=== PATIENT | male | born 1970 | race Caucasian/White ===

== ENCOUNTER 2018-03-28 06:59 | Inpatient (IN) | payer SELFPAY ==
[2018-03-28] MEDS ORDERED: Sodium Chloride 0.9% 1,000 ML IV ONE (07:15)
--- NOTE | 2018-03-28 07:15 | EDM.PDOC ---
ED HPI GENERAL MEDICAL PROBLEM - General Chief Complaint: Skin Complaint Stated Complaint: INFECTION ON LEFT ARM Time Seen by Provider: 03/28/18 07:12 - History of Present Illness INITIAL COMMENTS - FREE TEXT/NARRATIVE: HISTORY AND PHYSICAL: History of present illness: Since 47-year-old white male presents with concern pain redness and swelling to his left upper extremity he describes was a similar episode in the past in which it sounds like he had surgical intervention may have had necrotizing fasciitis he does not recognize at term but states it was quite severe. He has significant pain he denies fever he states this started with a fall he denies any break in the skin or any laceration. Review of systems: As per history of present illness and below otherwise all systems reviewed and negative. Past medical history: As per history of present illness and as reviewed below otherwise noncontributory. Surgical history: As per history of present illness and as reviewed below otherwise noncontributory. Social history: No reported history of drug or alcohol abuse. Family history: As per history of present illness and as reviewed below otherwise noncontributory. Physical exam: HEENT: Atraumatic, normocephalic, pupils reactive, negative for conjunctival pallor or scleral icterus, mucous membranes moist, throat clear, neck supple, nontender, trachea midline. Lungs: Clear to auscultation, breath sounds equal bilaterally, chest nontender. Heart: S1S2, regular, negative for clicks, rubs, or JVD. Abdomen: Soft, nondistended, nontender. Negative for masses or hepatosplenomegaly. Negative for costovertebral tenderness. Pelvis: Stable nontender. Genitourinary: Deferred. Rectal: Deferred. Extremities: Left upper extremity he has erythema warmth induration extending from his dorsal lateral aspect of his forearm proximally to his humerus. Neurovascular exam is unremarkable there's no fluctuance. Neuro: Awake, alert, oriented. Cranial nerves II through XII unremarkable. Cerebellum unremarkable. Motor and sensory unremarkable throughout. Exam nonfocal. Diagnostics: CBC CMP blood culture [address] left upper extremity Therapeutics: Normal saline 1 L bolus vancomycin 1 g IV Impression: 1 cellulitis left upper extremity Definitive disposition and diagnosis as appropriate pending reevaluation and review of above. - Related Data Allergies Allergy/AdvReac Type Severity Reaction Status Date / Time diclofenac [From [place]aid] Allergy Hives Verified 03/28/18 07:21 Home Meds: Home Meds Acetaminophen [Pain Reliever] 03/28/18 [History] Ibuprofen [Advil] 03/28/18 [History] ED ROS GENERAL - Review of Systems Review Of Systems: ROS reveals no pertinent complaints other than HPI. ED EXAM, SKIN/RASH Exam: See Below (See dictation) Course - Vital Signs Last Recorded V/S: Last Vital Signs Temp 36.8 C 03/28/18 07:12 Pulse 99 03/28/18 07:12 Resp 18 03/28/18 07:12 BP 132/80 03/28/18 07:12 Pulse Ox 99 03/28/18 07:12 - Orders/Labs/Meds Orders: Active Orders 24 hr Category Date Time Status Forearm 2V Lt [CR] Stat Exams 03/28/18 07:38 Taken Forearm w Cont Lt [CT] Stat Exams 03/28/18 07:24 Ordered Humerus Lt [CR] Stat Exams 03/28/18 07:16 Taken Humerus w Cont Lt [CT] Stat Exams 03/28/18 07:24 Ordered CULTURE BLOOD [BC] Stat Lab 03/28/18 07:14 Ordered CULTURE BLOOD [BC] Stat Lab 03/28/18 07:14 Ordered LACTIC ACID,WHOLE BLOOD [BG] Stat Lab 03/28/18 07:12 Ordered Blood Culture x2 Reflex Set [OM.PC] Stat Oth 03/28/18 07:12 Ordered Labs: Laboratory Tests 03/28/18 03/28/18 Range/Units 08:00 08:00 WBC 16.06 H (4.0-11.0) K/uL RBC 4.75 (4.50-5.90) M/uL Hgb 15.3 (13.0-17.0) g/dL Hct 44.7 (38.0-50.0) % MCV 94.1 (80.0-98.0) fL MCH 32.2 H (27.0-32.0) pg MCHC 34.2 (31.0-37.0) g/dL RDW Std Deviation 43.8 (28.0-62.0) fl RDW Coeff of Giovani 13 (11.0-15.0) % Plt Count 163 (150-400) K/uL MPV 9.80 (7.40-12.00) fL Neut % (Auto) 79.1 (48.0-80.0) % Lymph % (Auto) 6.4 L (16.0-40.0) % [place] % (Auto) 14.3 (0.0-15.0) % Eos % (Auto) 0.1 (0.0-7.0) % Baso % (Auto) 0.1 (0.0-1.5) % Neut # (Auto) 12.7 H (1.4-5.7) K/uL Lymph # (Auto) 1.0 (0.6-2.4) K/uL [place] # (Auto) 2.3 H (0.0-0.8) K/uL Eos # (Auto) 0.0 (0.0-0.7) K/uL Baso # (Auto) 0.0 (0.0-0.1) K/uL Nucleated RBC % 0.0 /100WBC Nucleated RBCs # 0 K/uL Sodium 138 (136-148) mmol/L Potassium 4.0 (3.5-5.1) mmol/L Chloride 101 (98-107) mmol/L Carbon Dioxide 24.0 (21.0-32.0) mmol/L BUN 14 (7.0-18.0) mg/dL Creatinine 1.0 (0.8-1.3) mg/dL Est Cr Clr Drug Dosing TNP Estimated GFR (MDRD) > 60.0 ml/min Glucose 101 (74-106) mg/dL Calcium 9.1 (8.5-10.1) mg/dL Total Bilirubin 1.2 H (0.2-1.0) mg/dL AST 27 (15-37) IU/L ALT 33 (14-63) IU/L Alkaline Phosphatase 81 (46-116) U/L Total Protein 7.7 (6.4-8.2) g/dL Albumin 3.7 (3.4-5.0) g/dL Globulin 4.0 H (2.0-3.5) g/dL Albumin/Globulin Ratio 0.9 L (1.3-2.8) Meds: Medications Discontinued Medications Generic Name Dose Route Start Last Admin Trade Name Freq PRN Reason Stop Dose Admin Hydromorphone HCl 1 mg 03/28/18 07:27 03/28/18 08:00 Dilaudid IVPUSH 03/28/18 07:28 1 mg ONETIME ONE Administration Sodium Chloride 1,000 mls @ 999 mls/hr 03/28/18 07:15 03/28/18 08:15 Normal Saline IV 03/28/18 08:15 500 mls/hr .Bolus ONE Administration Vancomycin HCl 1 gm/ Sodium 250 mls @ 166 mls/hr 03/28/18 07:15 03/28/18 08: 15 Chloride IV 03/28/18 08:45 166 mls/hr ONETIME ONE Administration Ceftriaxone Sodium/Dextrose 2 50 mls @ 100 mls/hr 03/28/18 07:18 03/28/18 08: 36 gm/ Premix IV 03/28/18 07:47 100 mls/hr ONETIME ONE Administration Ondansetron HCl 4 mg 03/28/18 07:27 03/28/18 08:14 Zofran IVPUSH 03/28/18 07:28 4 mg ONETIME ONE Administration Departure - Departure Time of Disposition: 09:03 Disposition: Admitted As Inpatient 66 Condition: Good Clinical Impression: Cellulitis - Discharge Information Forms: ED Department Discharge - My Orders Last 24 Hours: My Active Orders 03/28/18 07:12 LACTIC ACID,WHOLE BLOOD [BG] Stat Blood Culture x2 Reflex Set [OM.PC] Stat 03/28/18 07:14 CULTURE BLOOD [BC] Stat CULTURE BLOOD [BC] Stat 03/28/18 07:16 Humerus Lt [CR] Stat 03/28/18 07:24 Forearm w Cont Lt [CT] Stat Humerus w Cont Lt [CT] Stat 03/28/18 07:38 Forearm 2V Lt [CR] Stat - Assessment/Plan Last 24 Hours: My Active Orders 03/28/18 07:12 LACTIC ACID,WHOLE BLOOD [BG] Stat Blood Culture x2 Reflex Set [OM.PC] Stat 03/28/18 07:14 CULTURE BLOOD [BC] Stat CULTURE BLOOD [BC] Stat 03/28/18 07:16 Humerus Lt [CR] Stat 03/28/18 07:24 Forearm w Cont Lt [CT] Stat Humerus w Cont Lt [CT] Stat 03/28/18 07:38 Forearm 2V Lt [CR] Stat
[2018-03-28] MEDS ORDERED: cefTRIAXone 2 GM in Premix Bag 1 BAG IV ONE (07:18)
[2018-03-28] MEDS ORDERED: Ondansetron 4 MG/2 ML SDV IVPUSH ONE (07:27)
[2018-03-28] MEDS ORDERED: HYDROmorphone 1 MG/ML Syringe IVPUSH ONE ×2 (07:27→10:54)
[2018-03-28 08:59] LABS: CHLORIDE,CL 101 mmol/L (98-107); SODIUM,NA 138 mmol/L (136-148)
[2018-03-28] MEDS ORDERED: Iopamidol 755 MG/ML 500 ML Multipack Bottle IVPUSH STA (12:09)
--- NOTE | 2018-03-28 12:59 | CT ---
EXAMINATION: CT left humerus and forearm HISTORY: Swelling COMPARISON: Radiograph from the same day TECHNIQUE: Axial CT images obtained through the left arm following the administration of 100 mL of Is ovue-370 the patient's right PICC line. Coronal and sagittal reconstructions obtained. FINDINGS: There is extensive subcutaneous edema within the left arm most prominent overlying the olec ranon. There is however fluid and edema tracking along the radial and dorsal fascial plane of the for earm. This demonstrates mild enhancement along the fascial plane. No evidence of subcutaneous gas. No elbow joint effusion. Edema extends to the lower humeral region however the fascial enhancement term inates at the supracondylar region. There is screw and plate hardware fixating the distal radius. Mil d subcutaneous edema distally however no organized fluid collection is noted overlying the hardware. No fracture or acute osseous abnormality. Bone mineralization is otherwise normal. IMPRESSION: 1. Fluid and edema within the radial and dorsal forearm with fascial enhancement concerning for fasci itis. No organized collection to suggest an abscess. 2. Otherwise extensive edema within the adjacent soft tissues consistent with cellulitis.
[2018-03-28] MEDS ORDERED: HYDROmorphone 1 MG/ML Syringe IVPUSH PRN (13:05)
[2018-03-28] MEDS ORDERED: Ondansetron 4 MG/2 ML SDV IVPUSH PRN (13:07)
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
[2018-03-28] MEDS ORDERED: Clindamycin Phosphate in D5W 600 MG in Premix Bag 50 BAG IV SCH ×2 (13:15)
[2018-03-28] MEDS ORDERED: Sodium Chloride 0.9% 1,000 ML IV SCH (13:15)
--- NOTE | 2018-03-28 13:40 | PCM.CONS ---
<Joe Alcocer - Last Filed: 03/28/18 13:56> H&P History of Present Illness - General Admit Problem/Dx: Admission Diagnosis/Problem Admission Diagnosis/Problem Cellulitis - History of Present Illness Initial Comments - Free Text/Narative: Mr. Cespedes is a 47 yr old male who presented to the ER today for worsening left arm pain, redness, and warmth. About four days ago he hit his left forearm on an elevator door. He did not break the skin. Since then he has not felt well, endorsing fever, chills, sweats, and worsening arm pain. He has not eaten or drank much. Two days ago the area began to become red. The pain has significantly worsened leading him to come into the ER. The associated redness has began to extend up his arm, toward the shoulder. He has swelling from the elbow to the hand. He endorses some numbness in the forearm. He describes a similar prior event a few years ago in which his right arm was surgically derided and he was treated with IV vancomycin and clindamycin for a staph infection. He has had prior plating of his left wrist and still has the hardware in place. He reports he is otherwise healthy and does not take any medications. He denies any bleeding or blood clotting problems. Allergy to penicillin. No known cardiac or pulmonary problems Left Arm Pain Score (Numeric/FACES): 10 - Related Data Allergies/Adverse Reactions: Allergies Allergy/AdvReac Type Severity Reaction Status Date / Time Penicillins Allergy Severe Swelling Verified 03/28/18 13:55 Home Medications: Home Meds Acetaminophen [Pain Reliever] PRN 03/28/18 [History] Ibuprofen [Advil] PO PRN 03/28/18 [History] Past Medical History HEENT History: Reports: None Cardiovascular History: Reports: None Respiratory History: Reports: None Gastrointestinal History: Reports: None Genitourinary History: Reports: None Musculoskeletal History: Reports: Back Pain, Chronic Neurological History: Reports: None, Other (See Below) Other Neuro History: Leg nerve problem Psychiatric History: Reports: Anxiety Endocrine/Metabolic History: Reports: None Hematologic History: Reports: None Immunologic History: Reports: None Oncologic (Cancer) History: Reports: None Dermatologic History: Reports: Other (See Below) Other Dermatologic History: MRSA infection L arm - Infectious Disease History Infectious Disease History: Reports: MRSA - Past Surgical History Head Surgeries/Procedures: Reports: None Respiratory Surgical History: Reports: Other (See Below) Other Respiratory Surgeries/Procedures: nose fx x 5 Musculoskeletal Surgical History: Reports: Other (See Below) Other Musculoskeletal Surgeries/Procedures:: L5 fusion Social & Family History - Family History Family Medical History: Noncontributory - Tobacco Use Smoking Status *Q: Current Some Day Smoker Years of Tobacco use: 10 Packs/Tins Daily: 0.2 Used Tobacco, but Quit: No Second Hand Smoke Exposure: Yes - Caffeine Use Caffeine Use: Reports: Coffee - Alcohol Use Alcohol Use History: Yes Days Per Week of Alcohol Use: 7 Number of Drinks Per Day: 2 Total Drinks Per Week: 14 - Recreational Drug Use Recreational Drug Use: No Drug Use in Last 12 Months: Yes Recreational Drug Type: Reports: Marijuana/Hashish Recreational Drug Use Frequency: Not Used In Over 6 Months H&P Review of Systems - Review of Systems: Review Of Systems: See Below General: Reports: Fever, Chills, Malaise, Weakness, Diaphoresis, Decreased Appetite Pulmonary: Reports: No Symptoms Cardiovascular: Reports: No Symptoms Gastrointestinal: Reports: Nausea, Vomiting Musculoskeletal: Reports: Other (Left arm redness, swelling, warmth, and associated numbness. Pain with wrist and elbow movement. ) Exam - Exam Exam: See Below - Vital Signs Vital Signs: Last Vital Signs Temp 36.8 C 03/28/18 07:12 Pulse 90 03/28/18 09:00 Resp 18 03/28/18 09:00 BP 125/70 03/28/18 09:00 Pulse Ox 98 03/28/18 09:00 Weight: 108.862 kg - Exam General: Alert, Mild Distress Lungs: Clear to Auscultation, Normal Respiratory Effort Cardiovascular: Regular Rate GI/Abdominal Exam: Soft, Non-Tender Extremities: Other (Left upper extremity swelling from hand to elbow. Associated blanching erythema. The forearm compartment is tense. Limited range of motion at wrist and elbow that with movement aggravates pain. Significant tenderness to palpation along forearm. Distal sensation grossly intact. Does endorse some numbness over forearm. Radial pulse intact. ) - Patient Data Lab Results Last 24 hrs: Laboratory Results - last 24 hr 03/28/18 03/28/18 03/28/18 Range/Units 08:00 08:00 13:17 WBC 16.06 H (4.0-11.0) K/uL RBC 4.75 (4.50-5.90) M/uL Hgb 15.3 (13.0-17.0) g/dL Hct 44.7 (38.0-50.0) % MCV 94.1 (80.0-98.0) fL MCH 32.2 H (27.0-32.0) pg MCHC 34.2 (31.0-37.0) g/dL RDW Std Deviation 43.8 (28.0-62.0) fl RDW Coeff of Giovani 13 (11.0-15.0) % Plt Count 163 (150-400) K/uL MPV 9.80 (7.40-12.00) fL Neut % (Auto) 79.1 (48.0-80.0) % Lymph % (Auto) 6.4 L (16.0-40.0) % [place] % (Auto) 14.3 (0.0-15.0) % Eos % (Auto) 0.1 (0.0-7.0) % Baso % (Auto) 0.1 (0.0-1.5) % Neut # (Auto) 12.7 H (1.4-5.7) K/uL Lymph # (Auto) 1.0 (0.6-2.4) K/uL [place] # (Auto) 2.3 H (0.0-0.8) K/uL Eos # (Auto) 0.0 (0.0-0.7) K/uL Baso # (Auto) 0.0 (0.0-0.1) K/uL Nucleated RBC % 0.0 /100WBC Nucleated RBCs # 0 K/uL Lactate 0.6 (0.20-2.00) mmol/L Sodium 138 (136-148) mmol/L Potassium 4.0 (3.5-5.1) mmol/L Chloride 101 (98-107) mmol/L Carbon Dioxide 24.0 (21.0-32.0) mmol/L BUN 14 (7.0-18.0) mg/dL Creatinine 1.0 (0.8-1.3) mg/dL Est Cr Clr Drug Dosing TNP Estimated GFR (MDRD) > 60.0 ml/min Glucose 101 (74-106) mg/dL Calcium 9.1 (8.5-10.1) mg/dL Total Bilirubin 1.2 H (0.2-1.0) mg/dL AST 27 (15-37) IU/L ALT 33 (14-63) IU/L Alkaline Phosphatase 81 (46-116) U/L Total Protein 7.7 (6.4-8.2) g/dL Albumin 3.7 (3.4-5.0) g/dL Globulin 4.0 H (2.0-3.5) g/dL Albumin/Globulin Ratio 0.9 L (1.3-2.8) Result Diagrams: 03/28/18 08:00 03/28/18 08:00 Consult PN Assessment/Plan (1) Cellulitis SNOMED Code(s): 166262267 Code(s): L03.90 - CELLULITIS, UNSPECIFIED Current Visit: No Qualifiers: Site of cellulitis: extremity Site of cellulitis of extremity: upper extremity Laterality: left Qualified Code(s): L03.114 - Cellulitis of left upper limb Assessment:: 47 yr old male who presents today for left arm cellulitis following trauma to the area about [address] imaging concerning for fasciitis. On exam there is significant swelling, erythema, and pain. Concern that he may develop compartment syndrome in the forearm given the rapid progression in his symptoms and clinical picture. WBC elevated in 16s, ESR and CRP pending at this time. Currently afebrile and hemodynamically stable. Problem List Initiated/Reviewed/Updated: Yes Plan: Recommend broad spectrum antibiotic coverage including MRSA Keep NPO with IVF Recommend urgent transfer to a higher level facility with larger support system in the event he requires operative intervention and ongoing infectious disease cares <Maria Del Carmen Harper R - Last Filed: 03/28/18 14:35> H&P History of Present Illness - General Date of Service: 03/28/18 Admit Problem/Dx: Admission Diagnosis/Problem Admission Diagnosis/Problem Cellulitis Source of Information: Patient History Limitations: Reports: No Limitations - History of Present Illness Quality: Reports: Pressure, Sharp Severity: Moderate Improves with: Reports: Immobilization, Rest Worsens with: Reports: Movement Context: Reports: Trauma Associated Symptoms: Reports: Fever/Chills, Loss of Appetite Past Medical History - Past Health History Medical/Surgical History: Denies Medical/Surgical History - Past Surgical History Respiratory Surgical History: Reports: Other (See Below) Musculoskeletal Surgical History: Reports: Other (See Below) Exam - Vital Signs Vital Signs: Last Vital Signs Temp 98.2 F 03/28/18 07:12 Pulse 90 03/28/18 09:00 Resp 18 03/28/18 09:00 BP 125/70 03/28/18 09:00 Pulse Ox 98 03/28/18 09:00 - Exam Psychiatric: Alert, Normal Affect, Normal Mood Physical Exam Comments:: Exam of LUE shows obvious erythema and swelling located over the proximal/ lateral forearm, extending into the upper arm and distal forearm. Skin integrity intact. Compartments are soft, but swollen. ROM at wrist 45 degrees flexion/extension with pain with further wrist extension, elbow -45-100 degrees. 45 degrees supination with full pronation. No fluctuance noted. AIN/PIN /uln motor intact. Rad/uln/med sensation intact. Rad pulse 2+. - Patient Data Lab Results Last 24 hrs: Laboratory Results - last 24 hr 03/28/18 03/28/18 03/28/18 Range/Units 08:00 08:00 13:17 WBC 16.06 H (4.0-11.0) K/uL RBC 4.75 (4.50-5.90) M/uL Hgb 15.3 (13.0-17.0) g/dL Hct 44.7 (38.0-50.0) % MCV 94.1 (80.0-98.0) fL MCH 32.2 H (27.0-32.0) pg MCHC 34.2 (31.0-37.0) g/dL RDW Std Deviation 43.8 (28.0-62.0) fl RDW Coeff of Giovani 13 (11.0-15.0) % Plt Count 163 (150-400) K/uL MPV 9.80 (7.40-12.00) fL Neut % (Auto) 79.1 (48.0-80.0) % Lymph % (Auto) 6.4 L (16.0-40.0) % [place] % (Auto) 14.3 (0.0-15.0) % Eos % (Auto) 0.1 (0.0-7.0) % Baso % (Auto) 0.1 (0.0-1.5) % Neut # (Auto) 12.7 H (1.4-5.7) K/uL Lymph # (Auto) 1.0 (0.6-2.4) K/uL [place] # (Auto) 2.3 H (0.0-0.8) K/uL Eos # (Auto) 0.0 (0.0-0.7) K/uL Baso # (Auto) 0.0 (0.0-0.1) K/uL Nucleated RBC % 0.0 /100WBC Nucleated RBCs # 0 K/uL Lactate 0.6 (0.20-2.00) mmol/L Sodium 138 (136-148) mmol/L Potassium 4.0 (3.5-5.1) mmol/L Chloride 101 (98-107) mmol/L Carbon Dioxide 24.0 (21.0-32.0) mmol/L BUN 14 (7.0-18.0) mg/dL Creatinine 1.0 (0.8-1.3) mg/dL Est Cr Clr Drug Dosing TNP Estimated GFR (MDRD) > 60.0 ml/min Glucose 101 (74-106) mg/dL Calcium 9.1 (8.5-10.1) mg/dL Total Bilirubin 1.2 H (0.2-1.0) mg/dL AST 27 (15-37) IU/L ALT 33 (14-63) IU/L Alkaline Phosphatase 81 (46-116) U/L Total Protein 7.7 (6.4-8.2) g/dL Albumin 3.7 (3.4-5.0) g/dL Globulin 4.0 H (2.0-3.5) g/dL Albumin/Globulin Ratio 0.9 L (1.3-2.8) Result Diagrams: 03/28/18 08:00 03/28/18 08:00 Imaging Impressions Last 24 hrs: XR and Ct of LUE evaluated. CT shows questionable fasciitis without gas formation. Obvious cellullitis without abscess formation. Consult PN Assessment/Plan (1) Cellulitis SNOMED Code(s): 277872781 Code(s): L03.90 - CELLULITIS, UNSPECIFIED Current Visit: No Qualifiers: Site of cellulitis: extremity Site of cellulitis of extremity: upper extremity Laterality: left Qualified Code(s): L03.114 - Cellulitis of left upper limb Problem List Initiated/Reviewed/Updated: Yes My Orders Last 24 Hours: Discussed treatment options with the patient. The line of previous demarcation of the erythema has progressed since this morning. I discussed treatment options with the patient. I am concerned over the possibility of progression of the fasciitis along with the possibility of the development of compartment syndrome. Due to our limited resources here, including no ID, plastic surgery coverage on the weekend, and limited resources in the ICU, I am recommending transfer to a higher level of care. Patient has been given IV abx and BC have been drawn. Currently awaiting ESR and CRP, but WBC count is elevated with stable VS and normal lactate level. I am recommending that the patient be transferred via air, as time is of the essence if the infection progresses. I do not feel comfortable having him travel by ground with family. I have discussed my concerns and recommendations with the patient. He seems to understand that we are looking out for his best interest by having him transferred. I have discussed this with the hospitalist and team as well, and they are in agreement with air travel. Patient has had a chance to consider his options. He is electing to leave [facility] and travel to [facility] for definitive care. He is refusing to receive his dose of meropenem prior to discharge. I carefully discussed the risks of his decision with him. He is aware of the potential complications that may develop and chooses to sign out AMA. He refused splinting of the extremity. I encouraged him to seek medical treatment as soon as possible. parker
[2018-03-28] MEDS ORDERED: Meropenem 1 GM in Sodium Chloride 0.9% 100 ML IV SCH ×6 (14:00)
--- NOTE | 2018-03-28 14:48 | CR ---
EXAMINATION: Fluoro and ultrasound guided right-sided PICC line placement. HISTORY: Long-term antibiotics. TECHNIQUE/FINDINGS: After written informed consent was obtained from the patient using ultrasound an d Fluoro guidance under aseptic conditions utilizing 1% lidocaine as local anesthesia right basilic v ein was accessed and 5 Bulgarian PICC catheter was deployed with its tip in the distal superior vena cav a. The catheter flushes and withdraws blood well. The catheter is flushed with the diluted heparin. The catheter secured well. IMPRESSION: Successful Fluoro and ultrasound guided PICC line placement.
--- NOTE | 2018-03-28 15:37 | CR ---
EXAM DATE: 03/28/18 PATIENT'S AGE: 47 Patient: JOAO REYNOSO Facility: [place], [place] Site . Site : 1970 Study: XRay Extremity Left [id number] HUMERUS-03/28/2018 7:58:31 AM Ordering Physician: Veronica Cavazos Final Report: Indication: Redness, swelling and pain Technique: Left humerus two views Comparison: None Findings: Bones: Alignment is normal. No fractures or bone lesions. No sign of osteomyelitis. Joint spaces: Unremarkable. Soft tissues: Unremarkable. Impression: Normal left humerus and adjacent soft tissues. Dictated by Parker Salas MD @ Mar 28 2018 8:15AM (Electronic Signature) Report Signed by Proxy. MARILOU
--- NOTE | 2018-03-28 15:38 | CR ---
EXAM DATE: 03/28/18 PATIENT'S AGE: 47 Patient: JOAO REYNOSO Facility: [place], [place] Site . Site : 1970 Study: XRay Extremity Left [id number] FOREARM-03/28/2018 7:58:50 AM Ordering Physician: Veronica Cavazos Final Report: Indication: Redness, swelling and pain Technique: Left forearm two views Comparison: None Findings: Bones: Alignment is normal. No fractures or bone lesions. No sign of osteomyelitis. There is a plate and screws fixating the distal radius. Hardware is in satisfactory position without evidence of loosening or infection. Joint spaces: Unremarkable. Soft tissues: Tiny linear density is likely overlying the soft tissues in the posterior forearm visualized on the lateral image only. Otherwise unremarkable. Impression: No acute or significant findings. Dictated by Parker Salas MD @ Mar 28 2018 8:18AM (Electronic Signature) Report Signed by Proxy. MARILOU
[2018-03-29] MEDS ORDERED: cefTRIAXone 2 GM in Premix Bag 1 BAG IV SCH (07:00)
== END 2018-03-28 14:40 | disposition left against medical advice (07) | DRG 603 ==
LOC: MW.ED 06:59 → MW.MS 09:34
PROVIDERS: ADMIT Internal Medicine; ATTEND Internal Medicine
PROC: 02HV33Z Insertion of Infusion Device into Superior Vena Cava, Percutaneous Approach (ICD-10-PCS; principal; 2018-03-28)
DX: L03.114 Cellulitis of left upper limb (principal); M72.8 Other fibroblastic disorders; F41.9 Anxiety disorder, unspecified; F17.210 Nicotine dependence, cigarettes, uncomplicated; Z88.0 Allergy status to penicillin; Z79.899 Other long term (current) drug therapy; W18.39XA Other fall on same level, initial encounter; Y93.89 Activity, other specified; Y92.59 Other trade areas as the place of occurrence of the external cause
CPT/HCPCS: 36415; 36569; 73060-26-LT; 73060-LT; 73090-26-LT; 73090-LT; 73201-26-LT; 73201-LT; 76937; 76937-26; 77001; 77001-26; 80053; 83605; 85025; 85652; 86140; 87040; 96361; 96365; 96366; 96367; 96375; 96376; 99285-25; J0696; J1170; J2405; J3370; J7040; J7050; Q9967

== ENCOUNTER 2021-03-31 08:06 | Emergency (ER) | payer SELFPAY ==
[2021-03-31] MEDS ORDERED: Sulfamethoxazole/Trimethoprim 800-160 MG Tab PO ONE (08:38)
--- NOTE | 2021-03-31 08:46 | EDM.PDOC ---
ED HPI GENERAL MEDICAL PROBLEM - General Chief Complaint: Skin Complaint Stated Complaint: STAPH INFECTION Time Seen by Provider: 03/31/21 08:24 Source of Information: Reports: Patient History Limitations: Reports: No Limitations - History of Present Illness INITIAL COMMENTS - FREE TEXT/NARRATIVE: Patient is a 50-year-old male who presents today for possible abscess to his chin. Patient has had previous MRSA infections to his left arm that requires what looks like a fasciotomy. Patient today states that the swelling of his chin started a few days ago he has been doing warm compresses with having small amount of drainage. Patient denies any systemic symptoms such as fever chills nausea vomiting or other complaints. Patient does have some pain to the area but pain does not radiate pain is not made better or worse by any events. Patient has concerns that this may again be a MRSA infection. - Related Data Allergies Allergy/AdvReac Type Severity Reaction Status Date / Time Penicillins Allergy Severe Swelling Verified 03/31/21 08:17 Home Meds: Home Meds Acetaminophen/oxyCODONE [Percocet 325-5 MG] 1 tab PO Q6HR PRN #20 tab 04/30/18 [Rx] Sulfamethoxazole/Trimethoprim [Bactrim Ds Tablet] 1 each PO BID 5 Days #10 tablet 03/31/21 [Rx] Past Medical History - Past Health History Medical/Surgical History: Denies Medical/Surgical History HEENT History: Reports: None Cardiovascular History: Reports: None Respiratory History: Reports: None Gastrointestinal History: Reports: None Genitourinary History: Reports: None Musculoskeletal History: Reports: Back Pain, Chronic, Other (See Below) Neurological History: Reports: None Other Neuro History: Leg nerve problem Psychiatric History: Reports: Anxiety Endocrine/Metabolic History: Reports: Obesity/BMI 30+ Hematologic History: Reports: None Immunologic History: Reports: None Oncologic (Cancer) History: Reports: None Dermatologic History: Reports: Other (See Below) Other Dermatologic History: MRSA infection L arm - Infectious Disease History Infectious Disease History: Reports: Chicken Pox, MRSA - Past Surgical History Head Surgeries/Procedures: Reports: None Respiratory Surgical History: Reports: Other (See Below) Other Respiratory Surgeries/Procedures: nose fx x 5 Musculoskeletal Surgical History: Reports: Other (See Below) Other Musculoskeletal Surgeries/Procedures:: L5 fusion, R arm fasciitis with surgical intervention. left lower arm washout Social & Family History - Family History Family Medical History: No Pertinent Family History - Tobacco Use Tobacco Use Status *Q: Light Tobacco User Years of Tobacco use: 25 Packs/Tins Daily: 1 - Caffeine Use Caffeine Use: Reports: Coffee, Energy Drinks, Soda, Tea - Recreational Drug Use Recreational Drug Use: No - Living Situation & Occupation Living situation: Reports: Occupation: Employed ED ROS GENERAL - Review of Systems Review Of Systems: See Below Constitutional: Reports: No Symptoms HEENT: Reports: No Symptoms Respiratory: Reports: No Symptoms Cardiovascular: Reports: No Symptoms Endocrine: Reports: No Symptoms GI/Abdominal: Reports: No Symptoms : Reports: No Symptoms Musculoskeletal: Reports: No Symptoms Skin: Reports: Other (possible abscess) Neurological: Reports: No Symptoms Psychiatric: Reports: No Symptoms Hematologic/Lymphatic: Reports: No Symptoms Immunologic: Reports: No Symptoms ED EXAM, SKIN/RASH Exam: See Below Exam Limited By: No Limitations General Appearance: Alert, WD/WN Eye Exam: Bilateral Eye: EOMI Head: Facial Tenderness (No area of fluctuance). No: Facial Swelling Respiratory/Chest: No Respiratory Distress, Lungs Clear Cardiovascular: Normal Peripheral Pulses GI/Abdominal: Normal Bowel Sounds, Soft Neurological: Alert, Oriented, Normal Cognition, Normal Gait Skin: No: No Rash Course - Vital Signs Last Recorded V/S: Last Vital Signs Temp 97.5 F 03/31/21 08:17 Pulse 72 03/31/21 08:17 Resp 16 03/31/21 08:17 BP 134/84 03/31/21 08:17 Pulse Ox 97 03/31/21 08:17 - Orders/Labs/Meds Orders: Active Orders 24 hr Category Date Time Status CULTURE BLOOD [BC] Stat Lab 03/31/21 08:55 Received CULTURE BLOOD [BC] Stat Lab 03/31/21 09:07 Received Blood Culture x2 Reflex Set [OM.PC] Stat Oth 03/31/21 08:37 Ordered Labs: Laboratory Tests 03/31/21 03/31/21 Range/Units 08:55 08:55 WBC 6.10 (4.0-11.0) K/uL RBC 4.87 (4.50-5.90) M/uL Hgb 15.8 (13.0-17.0) g/dL Hct 46.6 (38.0-50.0) % MCV 95.7 (80.0-98.0) fL MCH 32.4 H (27.0-32.0) pg MCHC 33.9 (31.0-37.0) g/dL RDW Std Deviation 43.8 (28.0-62.0) fl RDW Coeff of Giovani 13 (11.0-15.0) % Plt Count 234 (150-400) K/uL MPV 9.80 (7.40-12.00) fL Neut % (Auto) 59.3 (48.0-80.0) % Lymph % (Auto) 26.9 (16.0-40.0) % [place] % (Auto) 9.2 (0.0-15.0) % Eos % (Auto) 4.1 (0.0-7.0) % Baso % (Auto) 0.5 (0.0-1.5) % Neut # (Auto) 3.6 (1.4-5.7) K/uL Lymph # (Auto) 1.6 (0.6-2.4) K/uL [place] # (Auto) 0.6 (0.0-0.8) K/uL Eos # (Auto) 0.3 (0.0-0.7) K/uL Baso # (Auto) 0.0 (0.0-0.1) K/uL Nucleated RBC % 0.0 /100WBC Nucleated RBCs # 0 K/uL Sodium 141 (136-148) mmol/L Potassium 4.0 (3.5-5.1) mmol/L Chloride 106 (98-107) mmol/L Carbon Dioxide 28.5 (21.0-32.0) mmol/L BUN 13 (7.0-18.0) mg/dL Creatinine 1.1 (0.8-1.3) mg/dL Est Cr Clr Drug Dosing 90.80 mL/min Estimated GFR (MDRD) > 60.0 ml/min Glucose 98 (74-106) mg/dL Calcium 8.6 (8.5-10.1) mg/dL Meds: Medications Discontinued Medications Generic Name Dose Route Start Last Admin Trade Name Freq PRN Reason Stop Dose Admin Trimethoprim/Sulfamethoxazole 1 tab 03/31/21 08:38 03/31/21 09:13 Sulfamethoxazole/Trimethoprim 800-160 Mg Tab PO 03/31/21 08:39 1 tab ONETIME ONE Administration - Re-Assessments/Exams Free Text/Narrative Re-Assessment/Exam: 03/31/21 10:01 Patient will be sent home with Bactrim DS allergic penicillin. Patient also had blood culture sent that are still pending. Departure - Departure Time of Disposition: 10:01 Disposition: Home, Self-Care 01 Condition: Good Clinical Impression: Infection of skin due to methicillin resistant Staphylococcus aureus (MRSA) - Discharge Information *PRESCRIPTION DRUG MONITORING PROGRAM REVIEWED*: Not Applicable *COPY OF PRESCRIPTION DRUG MONITORING REPORT IN PATIENT SANTOS: Not Applicable Prescriptions: Sulfamethoxazole/Trimethoprim [Bactrim Ds Tablet] 1 each PO BID 5 Days #10 tablet Instructions: MRSA Infection, Self-Care, Adult Referrals: PCP,None [Primary Care Provider] - Forms: ED Department Discharge Additional Instructions: The following information is given to patients seen in the emergency department who are being discharged to home. This information is to outline your options for follow-up care. We provide all patients seen in our emergency department with a follow-up referral. The need for follow-up, as well as the timing and circumstances, are variable depending upon the specifics of your emergency department visit. If you don't have a primary care physician on staff, we will provide you with a referral. We always advise you to contact your personal physician following an emergency department visit to inform them of the circumstance of the visit and for follow-up with them and/or the need for any referrals to a consulting specialist. The emergency department will also refer you to a specialist when appropriate. This referral assures that you have the opportunity for follow-up care with a specialist. All of these measure are taken in an effort to provide you with optimal care, which includes your follow-up. Under all circumstances we always encourage you to contact your private physician who remains a resource for coordinating your care. When calling for follow-up care, please make the office aware that this follow-up is from your recent emergency room visit. If for any reason you are refused follow-up, please contact the [facility] Emergency Department at and asked to speak to the emergency department charge nurse. Please follow up with your primary care physician. If you do not have a primary care physician, see below: [facility] [address] [place] [id number] [facility] [address] [place], [place] [id number] Please follow-up with your primary care physician as needed. He was sent home with antibiotics. We also sent blood cultures that are still pending and we will call you if it grows anything that needs to be treated. If you have any other complaints please return to the ED. Sepsis Event Note (ED) - Evaluation Sepsis Screening Result: No Definite Risk - Focused Exam Vital Signs: Vital Signs Temp Pulse Resp BP Pulse Ox 03/31/21 08:17 97.5 F 72 16 134/84 97 - My Orders Last 24 Hours: My Active Orders 03/31/21 08:37 Blood Culture x2 Reflex Set [OM.PC] Stat 03/31/21 08:55 CULTURE BLOOD [BC] Stat 03/31/21 09:07 CULTURE BLOOD [BC] Stat - Assessment/Plan Last 24 Hours: My Active Orders 03/31/21 08:37 Blood Culture x2 Reflex Set [OM.PC] Stat 03/31/21 08:55 CULTURE BLOOD [BC] Stat 03/31/21 09:07 CULTURE BLOOD [BC] Stat Plan: Patient is a 50-year-old male presents today for area of possible abscess on his chin. On exam there is no area of fluctuance requiring drainage. There is some redness to the chin. Will get basic labs and likely discharge patient home on antibiotics.
[2021-03-31 09:26] LABS: BLOOD UREA NITROGEN,BUN 13 mg/dL (7.0-18.0); CARBON DIOXIDE,CO2 28.5 mmol/L (21.0-32.0); CHLORIDE,CL 106 mmol/L (98-107); GLUCOSE RANDOM 98 mg/dL (74-106); SODIUM,NA 141 mmol/L (136-148)
== END 2021-03-31 10:15 | disposition home or self-care (01) ==
LOC: MW.ED 08:14
DX: A49.02 Methicillin resistant Staphylococcus aureus infection, unspecified site (principal); E66.9 Obesity, unspecified; Z68.33 Body mass index [BMI] 33.0-33.9, adult; Z88.0 Allergy status to penicillin; Z72.0 Tobacco use
CPT/HCPCS: 36415; 80048; 85025; 87040; 99283; A9270